=== PATIENT | female | born 1970 | race Caucasian/White ===

== ENCOUNTER 2021-03-29 07:43 | Outpatient (CLI) | payer BC ==
--- NOTE | 2021-03-30 13:21 | Mammography Report ---
BILATERAL DIGITAL SCREENING MAMMOGRAM 3D/2D WITH EXAGGERATED CC: 03/29/2021 CLINICAL: Family history of breast cancer. Comparison is made to exam dated: 05/31/2015 mammogram - [facility]. The tissue of both breasts is heterogeneously dense. This may lower the sensitivity of mammography. No significant masses, calcifications, or other findings are seen in either breast. There has been no significant interval change. IMPRESSION: NEGATIVE There is no mammographic evidence of malignancy. A 1 year screening mammogram is recommended. This exam was interpreted at Station ID: [id number]. NOTE: For mammograms, a report in lay terms will be sent to the patient. Approximately 15% of breast malignancies will not be visualized mammographically. In the management of a palpable breast mass, a negative mammogram must not discourage biopsy of a clinically suspicious lesion. Electronically Signed By: Wendy [email or web address]/[email or web address]:03/29/2021 12:13:25 ACR BI-RADS Category 1: Negative 3341F PARENCHYMAL PATTERN: (D) - The breast(s) demonstrate(s) heterogeneously dense fibroglandular amrit hammonds. BI-RADS CATEGORY: (1) - 1 RECOMMENDATION: (ANNUAL) - Recommend routine annual screening mammography. [id number] 1 year screening LATERALITY: (B)
== END 2021-03-29 07:44 | disposition home or self-care (01) ==
LOC: DI.S 07:43
DX: Z12.31 Encounter for screening mammogram for malignant neoplasm of breast (principal)

== ENCOUNTER 2021-04-04 16:10 | Outpatient (CLI) | payer BC ==
--- NOTE | 2021-04-06 10:28 | Ultrasound Report ---
PROCEDURE: Pelvic w/Transvaginal INDICATIONS: IRREGULAR MENSTRAL BLEEDING TECHNIQUE: Real-time scanning was performed of the pelvic organs, with image documentation. Additional endovagi nal scanning was necessary due to incomplete visualization of the adnexal and endometrial structures by transabdominal scanning. COMPARISON: None. FINDINGS: No pathologic free abdominal or pelvic fluid. Uterus: Uterus is normal in size at 5.8 x 3.5 x 4.2 cm. The endometrium measures 5.6 mm in combined thickness. There is a 1.5 x 1.0 x 1.6 cm subserosal fibroid in the right mid uterine segment. A 1.5 x 1.2 x 1.4 cm subserosal fibroid is seen in the left posterior uterine wall near the fundus. Ovaries: Right ovary measures 2.2 x 1.6 x 2.5 cm with an estimated volume of 4.6 mL. There is a 1.0 x 0.9 x 1.2 cm complex cyst in the right ovary. Left ovary measures 2.0 x 1.3 x 2.7 cm with an estima damaris volume of 3.6 mL. There is a 1.3 x 0.8 x 1.5 cm complex cyst in the left ovary. IMPRESSION: 1. Myomatous uterus with 2 small subserosal uterine fibroids. 2. Endometrium measures 5.6 mm. In a perimenopausal woman with irregular menstrual bleeding, this war rants clinical follow up and imaging follow-up as needed. 3. Small complex cysts in ovaries bilaterally. Reviewed by: David Youngblood MD on 04/06/2021 10:27 AM PDT Approved by: David Youngblood MD on 04/06/2021 10:27 AM PDT Station ID: [id number]
== END 2021-04-04 16:11 | disposition home or self-care (01) ==
LOC: DI 16:10
PROVIDERS: ATTEND Nurse Practitioner
DX: D25.2 Subserosal leiomyoma of uterus (principal); N83.292 Other ovarian cyst, left side; N83.291 Other ovarian cyst, right side; N92.6 Irregular menstruation, unspecified